=== PATIENT | female | born 1975 | race Caucasian/White ===

== ENCOUNTER 2021-08-14 05:20 | Day surgery (SDC) | payer BC, SELFPAY ==
[~2021-08-14] VITALS: Ht 165.1 cm; Wt 107.0 kg
[2021-08-14] MEDS ORDERED: CEFAZOLIN SOD 1 GM in D5W 50 ML IV ONE (07:00)
[2021-08-14 07:34] LABS: HCG,QUAL RESULT NEGATIVE (NEGATIVE)
[2021-08-14] MEDS ORDERED: ACETAMINOPHEN I.V. 1000 MG 100 ML IV ONE (07:40)
[2021-08-14] MEDS ORDERED: ONDANSETRON HCL 4 MG/2 ML VIAL IVP ONE (07:46)
[2021-08-14] MEDS ORDERED: fentaNYL CITRATE/PF 100 MCG/2 ML AMP IVP ONE (07:46)
[2021-08-14] MEDS ORDERED: BUPIVACAINE /EPINEPHRINE/PF 0.25% 30 ML VIAL INJ ONE (07:46)
[2021-08-14] MEDS ORDERED: NS 1000 ML IV.SOLN IV ONE (07:46)
[2021-08-14] MEDS ORDERED: NS IRRIG SOLN 1000 ML IR ONE (07:46)
[2021-08-14] MEDS ORDERED: KETOROLAC TROMETHAMINE 30 MG VIAL IVP ONE (07:46)
[2021-08-14] MEDS ORDERED: MIDAZOLAM HCL 5 MG/5 ML VIAL IVP ONE (07:46)
[2021-08-14] MEDS ORDERED: METOPROLOL TARTRATE 5 MG/5 ML AMPUL IVP ONE (07:46)
[2021-08-14] MEDS ORDERED: LIDOCAINE 1% 10 MG/ML, 20 ML MDV INJ ONE (07:46)
[2021-08-14] MEDS ORDERED: DESFLURANE 15 MIN GAS INH ONE (07:46)
[2021-08-14] MEDS ORDERED: DEXAMETHASONE SOD PHOSPHATE 4 MG/ML VIAL IVP ONE (07:46)
[2021-08-14] MEDS ORDERED: PROPOFOL 200MG/ 20ML VIAL (DIPRIVAN) IV ONE (07:46)
[2021-08-14] MEDS ORDERED: LR 1,000 ML IV.SOLN IV ONE (07:46)
[2021-08-14] MEDS ORDERED: SUGAMMADEX SODIUM 200 MG/2 ML VIAL IV ONE (07:46)
[2021-08-14] MEDS ORDERED: ROCURONIUM BROMIDE 10 MG/ML (ZEMURON) IV ONE (07:46)
[2021-08-14] MEDS ORDERED: MEPERIDINE HCL/PF 25 MG/ML DISP.SYRIN IVP PRN (08:30)
[2021-08-14] MEDS ORDERED: LABETALOL 100 MG/ 20ML VIAL IVP PRN (08:30)
[2021-08-14] MEDS ORDERED: hydrALAZINE HCL 20 MG/ML VIAL IVP PRN (08:30)
[2021-08-14] MEDS ORDERED: METOCLOPRAMIDE HCL 10 MG/2 ML VIAL IVP PRN (08:30)
[2021-08-14] MEDS ORDERED: MIDAZOLAM HCL 2 MG/2 ML VIAL (VERSED) IVP PRN (08:30)
[2021-08-14] MEDS ORDERED: HYDROmorphone 1 MG/ML INJ. CARTRIDGE IVP PRN ×2 (08:30→09:30)
[2021-08-14] MEDS ORDERED: LR 1,000 ML IV SCH (08:30)
[2021-08-14] MEDS ORDERED: HYDROmorphone 1 MG/ML INJ. CARTRIDGE ONE (09:29)
[2021-08-14] MEDS: HYDROmorphone 1 MG/ML INJ. CARTRIDGE IVP PRN ×3 (09:30→09:45)
[2021-08-14] MEDS ORDERED: D5/0.45 NS 1,000 ML IV SCH (09:30)
[2021-08-14] MEDS ORDERED: METOCLOPRAMIDE HCL 10 MG/2 ML VIAL ONE (10:08)
[2021-08-14 14:03] VITALS: BP_SYST 125
== END 2021-08-14 11:35 | disposition home or self-care (01) ==
LOC: SMU 05:20 → SDS 05:20 → SMU 14:05
PROVIDERS: ATTEND Colon & Rectal Surgery
DX: K80.10 Calculus of gallbladder with chronic cholecystitis without obstruction (principal); E66.01 Morbid (severe) obesity due to excess calories; F41.9 Anxiety disorder, unspecified; G43.909 Migraine, unspecified, not intractable, without status migrainosus; Z20.822 Contact with and (suspected) exposure to COVID-19; Z79.899 Other long term (current) drug therapy
CPT/HCPCS: 36415; 47563; 74300; 84703; 87426; 88304; C1727; C1758; J0131; J0690; J1100; J1170; J1885; J2001; J2250; J2405; J2704; J2765; J3010; J3490 ×3; J7030; J7060; J7120; Q9967; U0003; 76000